=== PATIENT | male | born 1980 | race African-American/Black ===

== ENCOUNTER 2019-03-08 15:58 | Emergency (ER) | payer OTHER ==
[~2019-03-08] VITALS: Ht 172.7 cm; Wt 64.4 kg
[2019-03-08 17:24] VITALS: BP 107/76
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
[2019-03-08] MEDS ORDERED: CYCL5TAB PO (19:07)
[2019-03-08] MEDS ORDERED: SULF1TAB24 PO (19:07)
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
== END 2019-03-08 19:16 | disposition home or self-care (01) ==
LOC: ER 15:58
DX: S16.1XXA Strain of muscle, fascia and tendon at neck level, initial encounter (principal); L73.8 Other specified follicular disorders; M79.644 Pain in right finger(s); V43.62XA Car passenger injured in collision with other type car in traffic accident, initial encounter; Y93.89 Activity, other specified; Y92.410 Unspecified street and highway as the place of occurrence of the external cause; Y99.8 Other external cause status
CPT/HCPCS: 73130; 99284

== ENCOUNTER 2019-06-14 21:29 | Emergency (ER) | payer SELFPAY ==
[~2019-06-14] VITALS: Ht 170.2 cm; Wt 64.4 kg
[~2019-06-14 21:29] MED LIST: CYCL5TAB PO; SULF1TAB24 PO
[2019-06-14 21:30] VITALS: BP 144/85
[2019-06-14] MEDS ORDERED: CLINDAMYCIN HCL 150 MG CAPSULE. PO ONE (22:15)
[2019-06-14] MEDS ORDERED: ORPHENADRINE CITRATE 60 MG/2 ML VIAL. IM ONE (22:15)
[2019-06-14] MEDS ORDERED: DIPHTH,PERTUSS(ACELL),TET TOX 0.5 ML DISP.SYRIN. VAX IM ONE (22:15)
[2019-06-14] MEDS ORDERED: LIDOCAINE 1%/EPI 1:100,000 20 ML VIAL. INJ ONE (23:45)
[2019-06-14] MEDS ORDERED: NEOMY/BACITR/POLYMYXIN OINT PACKET. TP ONE (23:45)
[2019-06-14] MEDS ORDERED: ORPH100T PO (23:47)
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
--- NOTE | 2019-06-17 13:08 | PATHOLOGY ---
[facility] Accession Number: [id number] . 01 Material submitted: . neck - SOFT TISSUE TUMOR. Modifiers: right . 01 Clinical history: . Lipoma . 02 Diagnosis: Fibrous tissue, right submental subcutaneous soft tissue tumor removal: - Fibroma. - Small epidermal inclusion cyst. ([facility] 06/17/2019) [facility]/06/17/2019 . 02 Comment: There is no evidence of malignancy. ([facility] 06/17/2019) . 02 Electronically signed: . Luc Downs MD, Pathologist NPI- [id number] . 01 Gross description: . The specimen is received in formalin, labeled "Prabhakar Fong, R submental soft tissue tumor". Received is a segment of pale johnson, firm soft tissue measuring 2.6 x 2.2 x 1.6 cm in greatest dimensions. The surgical margin is inked. Sectioning reveals pale johnson, homogenous cut surfaces throughout. A single possible cystic structure is identified measuring 0.4 cm filled with griggs-johnson material. The specimen is submitted representatively in cassettes A1 and A2, with the possible cystic structure submitted in cassette A1. ([facility]; 06/16/2019) QAC/QAC . 02 Pathologist provided ICD-10: D23.4, L72.0 . 02 CPT . 616977 Specimen Comment: A courtesy copy of this report has been sent to Specimen Comment: [phone]. Specimen Comment: Report sent to Performed at: 01 [facility] [address], [place] [id number] MD Keith Baltazar MD Phone: [phone] Performed at: 02 [facility] [address] [place], [place] [id number] MD Luc Downs MD Phone: [phone]
== END 2019-06-14 23:52 | disposition home or self-care (01) ==
LOC: ER 21:29
DX: S46.912A Strain of unspecified muscle, fascia and tendon at shoulder and upper arm level, left arm, initial encounter (principal); D17.0 Benign lipomatous neoplasm of skin and subcutaneous tissue of head, face and neck; X58.XXXA Exposure to other specified factors, initial encounter; Y93.89 Activity, other specified; Y92.89 Other specified places as the place of occurrence of the external cause; Y99.8 Other external cause status
CPT/HCPCS: 88305; 90471; 90715; 96372; 99284; J2360; J3490

== ENCOUNTER 2022-02-03 10:25 | Emergency (ER) | payer OTHER ==
[~2022-02-03] VITALS: Ht 170.2 cm; Wt 65.0 kg
[~2022-02-03 10:25] MED LIST changes: +ORPH100T PO
[2022-02-03 10:29] VITALS: BP 134/74
[2022-02-03] MEDS ORDERED: KETOROLAC 30 MG/ML VIAL. IM ONE (10:45)
--- NOTE | 2022-02-03 11:27 | RAD ---
Study: XR KNEE_RT 1-2 VIEWS Indication: Possible foreign body. Comparison: None. Findings: No fracture or malalignment. Maintained femorotibial compartment joint space height. No large knee mike int effusion. No radiodense foreign body within the soft tissues. Impression: No acute osseous abnormality or retained radiodense foreign body. Electronically signed by: PADDY SANDOVAL MD (02/03/2022 11:24 AM) [id number]
--- NOTE | 2022-02-03 11:28 | RAD ---
Study: XR ABDOMEN 1V Indication: Possible foreign body. Left-sided abdominal pain. Comparison: None. Findings: Nonobstructive bowel gas pattern. Small volume well-formed stool scattered throughout the colon. No r adiodense foreign body. Small chronic focus of ossification projecting at the right hemipelvis. The p artially assessed osseous structures are grossly intact. Impression: Nonobstructive bowel gas pattern with a small amount of well-formed stool. No radiodense foreign body seen within the soft tissues or imaged bowel. Electronically signed by: PADDY SANDOVAL MD (02/03/2022 11:26 AM) [id number]
[2022-02-03] MEDS ORDERED: LIDOCAINE 1% PF 5 ML VIAL. INJ ONE (12:00)
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
[2022-02-03] MEDS ORDERED: LIDOCAINE 1% Multi-Dose 20 ML VIAL. ONE (12:04)
[2022-02-03] MEDS ORDERED: CEPH250C PO (13:22)
== END 2022-02-03 14:30 | disposition home or self-care (01) ==
LOC: ER 10:25
DX: S81.011A Laceration without foreign body, right knee, initial encounter (principal); W18.31XA Fall on same level due to stepping on an object, initial encounter; Y93.89 Activity, other specified; Y92.89 Other specified places as the place of occurrence of the external cause; Y99.8 Other external cause status
CPT/HCPCS: 12002; 73560; 74018; 96372; 99284; J1885; J3490